=== PATIENT | male | born 1960 ===

== ENCOUNTER → 2017-01-05 | Outpatient (CLI) | payer OTHER ==
--- NOTE | 2017-01-05 11:19 | DIAGNOSTIC IMAGING REPORT ---
CHEST 2 VIEWS ROUTINE CLINICAL HISTORY: R53.81 R06.89 DECREASED BREATHSOUNDS COMPARISON STUDY: May 23, 2015 FINDINGS: The cardiac and mediastinal contours are normal. There is no evidence of focal pulmonary consolidation. There is no evidence of failure. No pleural effusions are visualized.[ IMPRESSION: No active disease in the chest. Electronically signed by: Jona Hollins M.D. 01/05/2017 11:18 AM Dictated Date/Time: 01/05/2017 11:17 AM
== END | disposition home or self-care (01) ==
LOC: C.RAD1850 11:00
PROVIDERS: ATTEND Family Medicine
DX: R53.81 Other malaise (principal); R06.89 Other abnormalities of breathing